=== PATIENT | male | born 1950 | race Caucasian/White ===

== ENCOUNTER → 2019-06-23 | Emergency (ER) | payer OTHER ==
[~2019-06-23] VITALS: Ht 165.1 cm; Wt 81.6 kg
[~2019-06-23] MED LIST: ASA81 MG; CHLORTHALIDONE25 MG; KETO10TA2 PO; LOSARTAN POTASS25 MG; MUPIROCIN22 GM TOP; TOPROL XL25 M1; ZOLOFT25 MG
== END | disposition home or self-care (01) ==
LOC: ER 01:15
DX: S00.01XA Abrasion of scalp, initial encounter (principal); S00.81XA Abrasion of other part of head, initial encounter; W18.09XA Striking against other object with subsequent fall, initial encounter; Y93.89 Activity, other specified; Y92.012 Bathroom of single-family (private) house as the place of occurrence of the external cause; Y99.8 Other external cause status